=== PATIENT | male | born 1995 | race African-American/Black ===

== ENCOUNTER 2019-02-04 13:52 | Emergency (ER) | payer MEDICAID ==
[~2019-02-04] VITALS: Ht 175.3 cm; Wt 106.0 kg
[2019-02-04 14:44] VITALS: BP 150/95
== END 2019-02-04 17:15 | disposition left against medical advice (07) ==
LOC: ER 13:52
DX: Z53.21 Procedure and treatment not carried out due to patient leaving prior to being seen by health care provider (principal)